=== PATIENT | female | born 1970 | race Caucasian/White ===

== ENCOUNTER → 2021-02-27 | Outpatient (CLI) | payer OTHER ==
[~2021-02-27] MED LIST: ASPI-630 PO; ATOR40TA PO; CALC-31 PO; ESCITALOPRAM OX10 MG PO; MULT-460 PO
[2021-02-27 13:47] LABS: BASO # 0.1 x10^3/uL (0.0-0.2); BASO % 1 % (0-3); EOS # 0.1 x10^3/uL (0.0-0.7); EOS % 2 % (0-3); HEMATOCRIT 40.9 % (36.0-47.0); HEMOGLOBIN 14.2 g/dL (12.0-15.5); LYMPH # 2.7 x10^3/uL (1.0-4.8); LYMPH % 40 % (24-48); MEAN CORPUSCULAR HEMOGLOBIN 32 pg (25-35); MEAN CORPUSCULAR HGB CONC 35 g/dL (31-37); MEAN CORPUSCULAR VOLUME 93 fL (79-100); MONO # 0.5 x10^3/uL (0.0-1.1); MONO % 7 % (0-9); NEUT # 3.4 x10^3/uL (1.8-7.7); NEUT % 49 % (31-73); PLATELET COUNT 202 x10^3/uL (140-400); RED BLOOD COUNT 4.39 x10^6/uL (3.50-5.40); RED CELL DISTRIBUTION WIDTH 13.5 % (11.5-14.5); WHITE BLOOD COUNT 6.8 x10^3/uL (4.0-11.0)
[2021-02-27 13:48] LABS: BILIRUBIN,URINE NEGATIVE (NEG); CLARITY,URINE CLEAR; COLOR,URINE YELLOW; NITRITE,URINE NEGATIVE (NEG); PH,URINE 6.5 (<5.0-8.0); PROTEIN,URINE NEGATIVE (NEG-TRACE); UROBILINOGEN,URINE 0.2 mg/dL (0.2 mg/dL)
--- NOTE | 2021-02-27 13:51 | EKG ---
[address] [place] [address] Test Date: 2021-02-27 Test Time: 13:48:44 Pat Name: BETTYE ORNELAS Department: Room: Gender: F Supervisor [employer]: CELENA : 1970 Requested By: JOHN CASAS Order Number: [id number] Reading MD: Nasir Youngblood MD Measurements Intervals Mildred Rate: 63 P: 66 NC: 150 QRS: 52 QRSD: 70 T: 43 QT: 420 QTc: 433 Interpretive Statements SINUS RHYTHM Electronically Signed On 03-02-2021 15:48:54 CDT by Nasir Youngblood MD
[2021-02-27 14:04] LABS: ALBUMIN 3.7 g/dL (3.4-5.0); ALBUMIN/GLOBULIN RATIO 1.2 (1.0-1.7); CALCIUM 9.3 mg/dL (8.5-10.1); GFR 59.2; POTASSIUM 3.9 mmol/L (3.5-5.1); TOTAL BILIRUBIN 0.4 mg/dL (0.2-1.0); TOTAL PROTEIN 6.9 g/dL (6.4-8.2)
[2021-02-27 14:38] LABS: BACTERIA,URINE FEW /HPF (0-FEW); RBC,URINE 0 /HPF (0-2); WBC,URINE 0 /HPF (0-4)
--- NOTE | 2021-02-27 15:35 | RAD ---
INDICATION: Reason: PRE-OP / Spl. Instructions: / History: COMPARISON: None. FINDINGS: 2 view of chest obtained. No focal airspace consolidation. Cardiac silhouette unremarkable. Mild degenerative changes spine IMPRESSION: * No focal airspace consolidation or edema. Electronically signed by: Franck Orozco MD (02/27/2021 3:33 PM) [id number]
== END ==
LOC: SURGPAT 12:44
PROVIDERS: ATTEND Obstetrics & Gynecology
DX: Z01.818 Encounter for other preprocedural examination (principal); M47.814 Spondylosis without myelopathy or radiculopathy, thoracic region; Z86.73 Personal history of transient ischemic attack (TIA), and cerebral infarction without residual deficits
CPT/HCPCS: 36415; 71046; 80053; 81001; 85025; 93005

== ENCOUNTER → 2021-03-02 | Outpatient (CLI) | payer OTHER | LOC: LAB 13:16 | PROVIDERS: ATTEND Obstetrics & Gynecology | DX: Z01.812 Encounter for preprocedural laboratory examination (principal); Z20.822 Contact with and (suspected) exposure to COVID-19; Z86.73 Personal history of transient ischemic attack (TIA), and cerebral infarction without residual deficits | CPT/HCPCS: U0003; U0005 ==

== ENCOUNTER 2021-03-04 06:10 | Observation (INO) | payer OTHER ==
[2021-02-27 13:30] VITALS: BP 132/62
[2021-03-04] VITALS (12 sets, daily range): BP systolic 107–139; BP diastolic 53–84
[~2021-03-04] VITALS: Ht 172.7 cm; Wt 86.0 kg
[~2021-03-04 06:10] MED LIST changes: +HYDROmorphone 2 MG/ML VIAL IVP PRN; +IV RINGERS,LACTATED 1000ML 1,000 ML IV SCH; +MORPHINE SULFATE 2 MG/ML VIAL. IVP PRN; +PROCHLORPERAZINE 10 MG/2 ML VIAL. IVP PRN; +fentaNYL PF VIAL 100 MCG/2 ML VIAL IVP PRN
[2021-03-04] MEDS ORDERED: ENOXAPARIN 40 MG/0.4 ML SYRINGE. SQ ONE (06:30)
[2021-03-04] MEDS ORDERED: PROPOFOL 10 MG/ML (20ML) VIAL. IV ONE (06:35)
[2021-03-04] MEDS ORDERED: LIDOCAINE 2% PF 5 ML VIAL. ONE (06:35)
[2021-03-04] MEDS ORDERED: DEXAMETHASONE SOD PHOS 4 MG/ML VIAL ONE (06:35)
[2021-03-04] MEDS ORDERED: ROCURONIUM 50 MG/5 ML VIAL. ONE ×2 (06:36→08:42)
[2021-03-04] MEDS ORDERED: ONDANSETRON PF 4 MG/2 ML VIAL. ONE (06:36)
[2021-03-04] MEDS ORDERED: fentaNYL PF VIAL 250 MCG/5 ML VIAL ONE (07:10)
[2021-03-04] MEDS ORDERED: MIDAZOLAM HCL/PF 2 MG/2 ML VIAL. ONE (07:10)
[2021-03-04] MEDS ORDERED: INDIGOTINDISULFONATE SODIUM 40 MG/5 ML AMPUL. ONE (07:11)
[2021-03-04] MEDS ORDERED: ESTROGENS, CONJ VAGINAL CREAM 30GM TUBE. ONE (07:11)
[2021-03-04] MEDS ORDERED: BUPIVACAINE-EPI 0.25% 30 ML VIAL KIT. ONE (07:11)
[2021-03-04] MEDS ORDERED: SEVOFLURANE 61 TO 120 MINUTES. IH ONE (08:45)
[2021-03-04] MEDS ORDERED: NEOSTIGMINE METHYLSULFATE 5 MG/5 ML SYRINGE. ONE (08:53)
[2021-03-04] MEDS ORDERED: GLYCOPYRROLATE 1 MG/5 ML VIAL. ONE (08:53)
[2021-03-04] MEDS ORDERED: KETOROLAC 30 MG/ML VIAL. ONE (08:54)
[2021-03-04] MEDS ORDERED: MAG HYDROX/ALUMINUM HYD/SIMETH 30 ML ORAL.SUSP PO PRN (10:00)
[2021-03-04] MEDS ORDERED: ONDANSETRON PF 4 MG/2 ML VIAL. IV PRN (10:00)
[2021-03-04] MEDS ORDERED: MAGNESIUM HYDROXIDE 2,400 MG/30 ML ORAL.SUSP. PO PRN (10:00)
[2021-03-04] MEDS ORDERED: CALCIUM CARBONATE 500 MG TAB.CHEW PO PRN (10:00)
[2021-03-04] MEDS ORDERED: NALOXONE 0.4 MG/ML VIAL. IV PRN (10:00)
[2021-03-04] MEDS ORDERED: diphenhydrAMINE HCL 25 MG CAPSULE PO PRN (10:00)
[2021-03-04] MEDS ORDERED: ZOLPIDEM 5 MG TABLET. PO PRN (10:00)
[2021-03-04] MEDS ORDERED: 0.9 % SODIUM CHLORIDE 10 ML DISP.SYRIN. IV PRN (10:00)
[2021-03-04] MEDS ORDERED: LACTULOSE 20 GM/30 ML SOLUTION. PO PRN (10:00)
[2021-03-04] MEDS ORDERED: diphenhydrAMINE 50 MG/ML VIAL IV PRN (10:00)
[2021-03-04] MEDS ORDERED: oxyCODONE/APAP 5/325 1 TAB TABLET PO PRN (10:00)
[2021-03-04] MEDS ORDERED: MORPHINE SULFATE 2 MG/ML VIAL. IV PRN (10:00)
[2021-03-04] MEDS ORDERED: SIMETHICONE 80 MG TAB.CHEW PO PRN (10:00)
--- NOTE | 2021-03-04 10:06 | PDOC ---
BRIEF OPERATIVE NOTE Date: March 04, 2021 Pre-Op Diagnosis Pelvic pain, known endometriosis Post-Op Diagnosis same Procedure Performed LAVH/BSO Surgeon Dr. Yolanda Holden Experimental Technician JAYRO Avery Anesthesiologist Dr. Davis Anesthesia Type: General Blood Loss 100cc IV Fluid 1750cc Urine Output 225cc clear via mirza Specimens Obtained cervix, uterus, bilateral tubes and ovaries Findings enlarged RV uterus, endometriosis on right ovary, left side wall, all throughout the posterior cul de sac and posterior uterus; mild scarring on right side with bowel, grossly normal RUQ Complications none Operative Note [id number] YOLANDA HOLDEN MD March 04, 2021 10:06
--- NOTE | 2021-03-04 10:46 | OP ---
DATE OF SURGERY: 03/04/2021 PREOPERATIVE DIAGNOSES: Known endometriosis and pelvic pain, desiring definitive therapy. POSTOPERATIVE DIAGNOSES: Known endometriosis and pelvic pain, desiring definitive therapy. PROCEDURE: Laparoscopic-assisted vaginal hysterectomy, bilateral salpingo-oophorectomy. SURGEON: Yolanda Holden MD SPECIAL LIBRARIAN: JAYRO Chapa ANESTHESIOLOGIST: Faraz Davis MD TYPE OF ANESTHESIA: General. ESTIMATED BLOOD LOSS: 100 mL. URINE OUTPUT: 225 mL clear via Rios catheter. FLUIDS: 1750 mL of crystalloid. SPECIMENS: Cervix, uterus, bilateral tubes and ovaries. FINDINGS: A mildly enlarged retroverted uterus. Endometriosis on the right ovary. The left sidewall above the IP ligament scattered throughout the posterior cul-de-sac on the uterus, posteriorly on the right ureter, the left uterosacral ligament. She also had some mild adhesions involving the cecum area where the appendix should have been found, but it was kind of scarred. I did not go digging in this area. A little bit of adhesions in this area and then a grossly normal right upper quadrant area. COMPLICATIONS: None. DESCRIPTION OF PROCEDURE: This patient was taken to the operating room where general anesthesia was placed. The patient was placed in dorsal lith[facility] The patient's abdomen and vagina were both prepped and draped in the normal sterile fashion and a Rios catheter was inserted under sterile technique. Upon my arrival, a timeout was performed. Once everyone agreed on the patient, the site, the procedure, the antibiotics and I did ensure she had received her Lovenox in preop prior to going back as well with her history of a TIA, the procedure was initiated. A bivalve speculum was placed in the patient's vagina. A single-tooth tenaculum was used to grasp the anterior lip of the cervix. 10-12 mL of 0.25% Marcaine with epinephrine was used to circumferentially inject around the cervix for both hemo dissection and hemostatic purposes later. Once this was done, the ValVendorStack uterine manipulator was placed through the endocervical os, locked on the single tooth tenaculum and the bivalve speculum was then removed. Top gloves were discarded and changed. Attention was then turned to the abdomen where a small infraumbilical skin incision was made over the existing scar. A curved Charo was used to dissect through the subcuticular layer to the fascia. The 5 mm Visiport was used to directly enter the abdominal cavity. Opening patient pressure was 3-4 mmHg and direct abdominal placement was confirmed via the laparoscope. Carbon dioxide gas was used to appropriately insufflate the abdominal cavity to maintain a pressure of 15 mmHg. The patient was placed in Trendelenburg position and overhead lights were dimmed. The right and left lower quadrant ports were placed after finding an area clear of any adhesions on the inside, which there were none to the anterior abdominal wall, transilluminating the abdominal wall, finding an area clear of any vasculature, injecting the area and then making a small incision and placing the 5 mm disposable atraumatic trocars in under direct visualization. 4-5 mL of air was placed in the trocar cuff. I did inject the umbilical one prior to making the incision and putting in it as well. Then, I moved the camera laterally to look at the umbilical incision. Once we were in there, it was good and I inflated 4-5 mL of air in that trocar cuff as well. The camera was moved back to the midline and we started on the left, elevating the left tube and ovary, finding the ureter coursing, staying high on the IP ligament, cauterizing and cutting with the LigaSure, taking both tubes and ovaries per patient request, crossing the left round ligament. This was done exactly the same on the right side, elevating the right tube and ovary, finding the right ureter coursing in the pelvis, staying high on the right infundibulopelvic ligament, again taking the right tube and ovary per patient request and taking it all the way under through the mesosalpinx crossing the right round ligament as well, cauterizing and cutting with the LigaSure. The uterus was pushed cephalad to the head. The [place] was used to grasp the bladder and the bladder flap was created sharply with the monopolar hook and gently pulled down. The uterine vessels were obtained on the right side, cauterizing and cutting, staying inside this pedicle and going posteriorly, hugging the posterior cervix and going down through the cardinal and broad ligaments. On the left side, once I was through the round ligament on the left, crossing contralaterally, staying vertical and hugging the cervix and uterus, cauterizing and cutting again with the LigaSure, getting the vessels and staying inside that pedicle, going vertical through the cardinal and broad ligament down to the level of the uterosacral. Once this was done, the uterus was completely free and it was blanched so all instruments were removed and it was decided to go vaginally. The overhead lights were turned back on. The legs were elevated. The patient was relieved of a little bit of that Trendelenburg position. The Valtchev and single tooth were removed. A weighted speculum was placed in the patient's vagina, thyroid Mulu clamps were placed on the anterior and posterior lips of the cervix respectively. A scalpel was used to make a circumferential incision in the cervix. An open Ray-Oliva 4 x 4 was used to gently push up the anterior bladder peritoneum. The posterior cul-de-sac was sharply entered with curved Henley scissors. A #0 Vicryl stitch was used to secure the posterior peritoneum here to the vaginal cuff and it was tagged with a curved tag and the needle was cut and passed off. Once this was done, the short weighted speculum was removed and replaced with the long Sylvie speculum in the posterior cul-de-sac. Once that was done, we went back and used the Metzenbaums through the anterior cavity and that Ray-Oliva was removed and the Usha was placed in the anterior cul-de-sac. Curved Ana clamps x 2 were placed on the patient's left uterosacral ligament where they were doubly clamped with curved Heaneys, cut with a curved Henley scissors and suture ligated x 2 with 0 Vicryl. The second one was taken through the vaginal cuff, securing the uterosacral ligament to the vaginal cuff, tagging it with a straight Charo clamp and cutting and passing the needle off. This was done exactly the same on the patient's right side, double clamping the uterosacrals with curved Heaneys, cutting with curved Henley scissors, suture ligating x 2 with 0 Vicryl and then taking the second one through the vaginal cuff, tagging it with a straight Charo clamp, cutting and passing the needle off. The remaining pedicles on both sides were delineated with the right angle and the vaginal LigaSure was used to cauterize and cut both sides until they were completely free. The cervix, uterus, bilateral tubes and ovaries were delivered in total. I had to kind of pull the uterus down and then used a tenaculum on the posterior because it was large to fit through as she was nulliparous and the vagina was narrow, but I was able to get it out the whole. Cervix, uterus, bilateral tubes and ovaries were delivered and passed off for permanent pathology. A sponge stick was used to examine the pedicles. There was some slight bleeding at the right side. This was grasped with a Burlisher and I was able to put the vaginal LigaSure behind it and cauterize it and the pedicle was dry. I then took a long Allis and grabbed the anterior bladder peritoneum and we examined all the pedicles. Again, the long weighted speculum was removed and replaced with the short weighted vaginal. I started to see a little bit of bleeding and it looked like it was from the right cuff side, so I put a couple of interrupted 2-0 Vicryl sutures in the cuff with excellent results. Once this was done, a full length 2-0 Vicryl was used to go through the anterior bladder peritoneum, left uterosacral ligament, posterior peritoneum and right uterosacral ligament, thus closing the peritoneum in a pursestring like fashion. The right and left uterosacral tags were clipped. The cuff was closed in an anterior to posterior running locked fashion with a full length 2-0 Vicryl and an imbricating stitch was just placed in the middle for hemostasis. The vaginal cuff was completely hemostatic and looked good. All instruments were removed and gloves were discarded and changed. All sponge, lap and needle counts had been correct x 2 by OR personnel prior to going above. The patient was placed back in Trendelenburg. Overhead lights were dimmed. Copious irrigation revealed complete hemostasis. Right and left pericolic gutters were clear. The irrigation returning was clear, so Tisseel was placed over all the cuffs and all the 3 port sites. The 4-5 mL of air was taken out of the trocar cuff. The right and left lower quadrant ports were removed under direct visualization. Gas was released from that umbilical port and then it was removed as well. All 3 port sites were closed with 4-0 nylon at the skin. Rios catheter was removed. The patient was awakened from anesthesia and brought to recovery room in stable condition. BRENDA/SHAHANA DR: Kaylynn TID: [id number]
--- NOTE | 2021-03-04 11:05 | NUR ---
Arrive to unit by bed from PACU. Awakens easily. No c/o at present time. SCD's on bilaterally. IVF's intact and infusing. VS stable. Oriented to room and controls. Side rails up x's 2 with call light in reach. Cont. monitor.
[2021-03-04] MEDS: HYDROcodone/APAP 5/325MG 1 TAB TABLET PO PRN (15:32)
[2021-03-05 03:00] VITALS: BP 118/55
[2021-03-05] MEDS: HYDROcodone/APAP 5/325MG 1 TAB TABLET PO PRN ×3 (03:33→13:34)
[2021-03-05 07:00] VITALS: BP 119/56
--- NOTE | 2021-03-05 08:00 | NUR ---
resting in bed. denies bleeding; light spotting. no complaints at this time. Dr. Vogel here. she reviewed discharge instructions and restrictions. she was given her pain medicine script prior to surgery.
[2021-03-05 08:17] LABS: CALCIUM 8.8 mg/dL (8.5-10.1); CREATININE 0.8 mg/dL (0.6-1.0); GFR 76.6; POTASSIUM 4.3 mmol/L (3.5-5.1)
--- NOTE | 2021-03-05 10:51 | PDOC ---
SURGICAL PROGRESS NOTE DATE: 03/05/21 TIME: 10:46 Subjective Doing well without complaints. Scant VB. Tolerating regular diet without problems, ambulating well, voiding without catheter and wanting to go home Vital Signs Vital Signs Date Time Temp Pulse Resp B/P (MAP) Pulse Ox O2 Delivery O2 Flow Rate FiO2 03/05/21 09:00 Room Air 03/05/21 08:50 20 03/05/21 07:00 98.6 57 119/56 (77) 98 98.6 03/04/21 10:15 6 I&O Intake and Output 03/05/21 07:00 Intake Total 3450 ml Output Total 475 ml Balance 2975 ml Intake Oral 1600 ml IV Total 1850 ml Output Urine Total 375 ml Estimated Blood Loss 100 ml # Voids 4 PATIENT HAS A ROBLEDO: No General: Alert, Oriented X3, Cooperative, No acute distress HEENT: Atraumatic Heart: Regular rate Abdomen: Soft, No masses, Other (all port sites c/d/i) Extremities: No clubbing, No cyanosis, No edema, No tenderness/swelling Skin: No rashes, No breakdown, No significant lesion Neuro: Normal speech Psych/Mental Status: Mental status NL, Mood NL Labs Laboratory Tests Test 03/04/21 06:44 03/05/21 07:50 Bedside Urine HCG, Qualitative Hcg negative (Negative) Hematocrit 36.2 % (36.0-47.0) Sodium Level 144 mmol/L (136-145) Potassium Level 4.3 mmol/L (3.5-5.1) Chloride Level 108 mmol/L (98-107) Carbon Dioxide Level 28 mmol/L (21-32) Anion Gap 8 (6-14) Blood Urea Nitrogen 11 mg/dL (7-20) Creatinine 0.8 mg/dL (0.6-1.0) Estimated GFR (Cockcroft-Gault) 76.6 Glucose Level 99 mg/dL (70-99) Calcium Level 8.8 mg/dL (8.5-10.1) Laboratory Tests Test 03/05/21 07:50 Hematocrit 36.2 % (36.0-47.0) Sodium Level 144 mmol/L (136-145) Potassium Level 4.3 mmol/L (3.5-5.1) Chloride Level 108 mmol/L (98-107) Carbon Dioxide Level 28 mmol/L (21-32) Anion Gap 8 (6-14) Blood Urea Nitrogen 11 mg/dL (7-20) Creatinine 0.8 mg/dL (0.6-1.0) Estimated GFR (Cockcroft-Gault) 76.6 Glucose Level 99 mg/dL (70-99) Calcium Level 8.8 mg/dL (8.5-10.1) I have reviewed the following labs, vitals, nursing Assessment/Plan POD#1 s/p LAVH/BSO Routine PO care d/c to home later today already has visit, narcotic pain med at home NO driving while on narcotic pain meds keep scheduled follow up with la light activity x 2 weeks NPV x 6 weeks call or return sooner for any other questions or concerns not limited to but including pain unrelieved with pain meds, increased or unexplained vb or T>100.4 Justicifation of Admission Dx: Justifications for Admission: Justification of Admission Dx: Yes JOHN CASAS MD March 05, 2021 10:50
--- NOTE | 2021-03-05 10:52 | PDOC3 ---
Discharge Summary Visit Information Date of Admission: March 04, 2021 Date of Discharge: March 05, 2021 Final Diagnosis endometriosis Brief Hospital Course Allergies Allergies Coded Allergies Type Severity Reaction Last Updated Verified No Known Drug Allergies 03/04/21 No Vital Signs Vital Signs Date Time Temp Pulse Resp B/P (MAP) Pulse Ox O2 Delivery O2 Flow Rate FiO2 03/05/21 09:00 Room Air 03/05/21 08:50 20 03/05/21 07:00 98.6 57 119/56 (77) 98 98.6 03/04/21 10:15 6 Lab Results Laboratory Tests Test 03/04/21 06:44 03/05/21 07:50 Bedside Urine HCG, Qualitative Hcg negative (Negative) Hematocrit 36.2 % (36.0-47.0) Sodium Level 144 mmol/L (136-145) Potassium Level 4.3 mmol/L (3.5-5.1) Chloride Level 108 mmol/L (98-107) Carbon Dioxide Level 28 mmol/L (21-32) Anion Gap 8 (6-14) Blood Urea Nitrogen 11 mg/dL (7-20) Creatinine 0.8 mg/dL (0.6-1.0) Estimated GFR (Cockcroft-Gault) 76.6 Glucose Level 99 mg/dL (70-99) Calcium Level 8.8 mg/dL (8.5-10.1) Laboratory Tests Test 03/05/21 07:50 Hematocrit 36.2 % (36.0-47.0) Sodium Level 144 mmol/L (136-145) Potassium Level 4.3 mmol/L (3.5-5.1) Chloride Level 108 mmol/L (98-107) Carbon Dioxide Level 28 mmol/L (21-32) Anion Gap 8 (6-14) Blood Urea Nitrogen 11 mg/dL (7-20) Creatinine 0.8 mg/dL (0.6-1.0) Estimated GFR (Cockcroft-Gault) 76.6 Glucose Level 99 mg/dL (70-99) Calcium Level 8.8 mg/dL (8.5-10.1) Brief Hospital Course Ms. Alexandra is a 50 old female who presented with pelvic pain and known endometriosis desiring definitive therapy. She underwent and LAVH/BSO yesterday without complications. She is doing well voiding, ambulating and tolerating pO desiring to go home. AFVSS Assessment Assessment POD#1 s/p LAVH/BSO Routine PO care d/c to home later today already has visit, narcotic pain med at home NO driving while on narcotic pain meds keep scheduled follow up with me light activity x 2 weeks NPV x 6 weeks call or return sooner for any other questions or concerns not limited to but including pain unrelieved with pain meds, increased or unexplained vb or T>100.4 Discharge Information Condition at Discharge: Stable Follow Up: Weeks Disposition/Orders: D/C to Home Scheduled Aspirin (Aspirin) 81 Mg Tab.chew, 1 TAB PO HS for prevent, #30 Ref 3 (Reported) Entered as Reported by: Arlene Deleon on 02/27/211321 Last Taken: Unknown Dose on 02/25/21 Last Action: Last Taken Edited on 03/04/21653 by JADA CAPPS Atorvastatin Calcium (Lipitor) 40 Mg Tablet, 1 TAB PO QHS for high cholesterol, #90 Ref 1 (Reported) Entered as Reported by: Arlene Deleon on 02/27/211321 Last Taken: Unknown Dose on 03/03/21 Last Action: Last Taken Edited on 03/04/2154 by JADA CAPPS Calcium Carbonate/Vitamin D3 (Calcium 500 + D Tablet) 1 Each Tablet, 1 TAB PO DAILY for supplement for 30 Days, #30 Ref 0 (Reported) Entered as Reported by: Arlene Deleon on 02/27/211321 Last Taken: Unknown Dose on 02/25/21 Last Action: Last Taken Edited on 03/04/21653 by JADA CAPPS Escitalopram Oxalate (Escitalopram Oxalate) 10 Mg Tablet, 1 TAB PO HS for anxiety, #30 Ref 3 (Reported) Entered as Reported by: Arlene Deleon on 02/27/211321 Last Taken: Unknown Dose on 03/03/21 Last Action: Last Taken Edited on 03/04/21653 by JADALEELA CAPPS Multivitamin With Minerals (Multiple Vitamin) 1 Each Tablet, 1 EACH PO DAILY for supplement, (Reported) Entered as Reported by: Arlene Deleon on 02/27/211321 Last Taken: Unknown Dose on 02/25/21 Last Action: Last Taken Edited on 03/04/21653 by JADA CAPPS Patient Instructions Patient Instructions POD#1 s/p LAVH/BSO Routine PO care d/c to home later today already has visit, narcotic pain med at home NO driving while on narcotic pain meds keep scheduled follow up with me light activity x 2 weeks NPV x 6 weeks call or return sooner for any other questions or concerns not limited to but including pain unrelieved with pain meds, increased or unexplained vb or T>100.4 Justicifation of Admission Dx: Justifications for Admission: Justification of Admission Dx: Yes JOHN CASAS MD March 05, 2021 10:52
--- NOTE | 2021-03-05 13:00 | NUR ---
reviewed written discharge instructions with Michaela. instructs to restart normal medications. 3 lap sites open to air. questions answered. awaiting family
--- NOTE | 2021-03-05 14:00 | NUR ---
dismissed to home with family
--- NOTE | 2021-03-09 09:12 | PATHOLOGY ---
[facility] Accession Number: [id number] . 01 Material submitted: . uterus - CERVIX UTERUS BILATERAL TUBES AND OVARIES . 01 Clinical history: . ENDOMETRIOSIS, PELVIC PAIN LAVH BSO . 02 Diagnosis: Uterus and attached bilateral fallopian tubes and ovaries, laparoscopic assisted vaginal hysterectomy with bilateral salpingo-oophorectomy: - Focal mild chronic cervicitis and squamous metaplasia. - Nabothian cyst, cervix. - Secretory endometrium. - Adenomyosis, uterine corpus, subbasal, with myometrial hypertrophy (uterine weight 152 grams). - Leiomyomas, uterine corpus, multiple, measuring up to 1.6 cm in greatest dimension. - Congestion of bilateral fallopian tubes. - Hemorrhagic corpus luteum cyst and small serous cyst of right ovary. - Focal capsular endometriosis and small serous cyst of left ovary. (JPM:gasper; 03/06/2021) [facility] 03/09/2021 0809 Local . 02 Comment: There is no atypia or evidence of malignancy. (JPM:gasper; 03/06/2021) . 02 Electronically signed: . Hector Quijano MD, Pathologist NPI- [id number] . 01 Gross description: . Fixative: Formalin Labeled: cervix, uterus, bilateral tubes and ovaries Specimen received: A previously opened uterus and cervix with attached bilateral ovaries and fimbriated fallopian tubes Uterus weight: 152 g Uterus: 11.0 cm (superior to inferior), 7.5 cm (cornu to cornu), and 5.0 cm (anterior to posterior) Serosa: Congested pink-gee smooth to nodular Ectocervix: Sachse-gee Cervical os: Previously opened, measuring 1.0 cm Endocervical canal: 3.0 cm in length and 0.4-0.6 cm in width Endometrial cavity: 5.5 cm in length and 0.7-2.1 cm in width Endometrial thickness: 0.1-0.2 cm Myometrial thickness: 1.8-2.3 cm Lesions/abnormalities: Sectioning of the cervix reveals pink-gee cut surfaces with 2 cystic spaces ranging from 0.5 to 0.6 cm filled with thick clear gel. Sectioning of the uterus reveals pink-gee cut surfaces with multiple white whorled pattern lesions ranging from 0.3-1.6 cm. Right fallopian tube: 5.2 cm in length and 0.4-0.8 cm in diameter with attached fimbria measuring 2.0 x 1.3 x 0.6 cm. Right fallopian tube appearance: Congested pink-gee with a paratubal cyst measuring 0.7 cm in greatest dimensions filled with clear fluid Left fallopian tube: 4.5 cm in length, 0.5-0.8 cm in diameter with attached fimbria measuring 1.8 x 1.0 x 0.6 cm. Left fallopian tube appearance: Congested pink-gee and no other grossly apparent lesions Right ovary: 10 g, 4.0 x 2.8 x 2.0 cm Right ovary appearance: Congested smooth to nodular pink-gee. Sectioning reveals congested/hemorrhagic and edematous pink-gee cut surfaces Left ovary: 4 g, 3.3 x 2.0 x 1.6 cm Left ovary appearance: Smooth congested pink-gee. Sectioning reveals congested pink-gee cut surfaces. . Cloth Printer Helper sections are submitted as follows: A1: 12:00 cervix A2: 6:00 cervix A3-A4: anterior endomyometrium A5-A6: posterior endomyometrium A7: right fallopian tube (3 cross sections, a perpendicular section of the fimbria and paratubal cyst) A8: left fallopian tube (3 cross sections and perpendicular section of the fimbria) A9-A10: right ovary A11: left ovary A12: whorled patterned lesion representation (BLJ; 03/04/2021) BLJ/BLJ 03/06/2021 1800 Local . 02 Pathologist provided ICD-10: D25.9, N80.0, N88.8, N83.202, N83.201 . 02 CPT . 420225 Specimen Comment: A courtesy copy of this report has been sent to [phone], [phone] Specimen Comment: [id number] Specimen Comment: Report sent to / DR BARGER Performed at: [address], [place] [id number] MD Yaya Bernal MD Phone: [phone] [facility]formed at: [facility] [address] [place], [place] [id number] MD Hector Quijano MD Phone: [phone]
== END 2021-03-05 14:00 | disposition home or self-care (01) ==
LOC: SURG 06:10 → EDUNIT# 07:30 → 4 SOUTHEST 10:00
PROVIDERS: ADMIT Obstetrics & Gynecology; ATTEND Obstetrics & Gynecology
DX: N92.0 Excessive and frequent menstruation with regular cycle (principal); N80.1 Endometriosis of ovary; R10.2 Pelvic and perineal pain; Z86.73 Personal history of transient ischemic attack (TIA), and cerebral infarction without residual deficits
CPT/HCPCS: 36415; 58552; 80048; 81025; 85014; 86850; 86900; 86901; 88307; 96361; 96374; A4314; A4930; A6219; G0378; G0379; J0690; J1100; J1650; J2405; J2704; J2710; J3010; J3480; J3490; A4657; J1885; J2250